=== PATIENT | male | born 1960 | race Caucasian/White ===

== ENCOUNTER → 2022-06-15 | Outpatient (CLI) | payer OTHER, SELFPAY ==
[2022-06-15 10:05] LABS: PSA,Total- Diagnostic 6.28 ng/mL (0.0-4.0)
== END | disposition home or self-care (01) ==
PROVIDERS: PCP Nurse Practitioner Family; Referring Provider Registered Nurse; Visit Provider Registered Nurse
DX: R97.20 Elevated prostate specific antigen [PSA] (principal)
CPT/HCPCS: 36415; 84153

== ENCOUNTER → 2022-07-06 | Outpatient (CLI) | payer OTHER, SELFPAY ==
--- NOTE | 2022-07-06 | IMM_PTH ---
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 Khadar Palomo MD : 1960 BED: DIS: 07/06/2022 SPEC #: [id number] RECD: 07/10/22 13:27 STATUS: AUGUSTO REQ #: [id number] NHAN: 07/06/22 00:[address]: Khadar Palomo DEPT: IMMUNOHISTOCHEMISTRY RECD BY: Karine Funes ENTERED: 07/10/22 13:28 SP TYPE: IMMUNO OTHR DR: Jo-Ann Benoit, ABDIRASHID-C Tissues: A - PROSTATE RIGHT B - PROSTATE RIGHT C - PROSTATE RIGHT Procedures: 34BE12 (add) P40 (add) 34BE12 (initial) PHYSICIAN & INSTITUTION [place] [id number] SPECIMEN INFORMATION: Tissue Source: A - Right prostate, apex, B - Right prostate, mid, C - Right prostate, base Clinical Info: Elevated PSA Specimen Number: [id number] A-C CPT code: 93778, 59676 x5 METHODOLOGY: Deparaffinized sections of prefer/formalin-fixed tissue or PAP/DQ stained slides are incubated with monoclonal/polyclonal antibodies/oligonucleotide probes. Localization is made via biotin free immunoperoxidase method. Appropriate controls are performed and reacted as expected. Results on target cell population are indicated in the following table: RESULTS: ANTIBODY / CLONE RESULT Block A P40 (BC28) positive 34BE12 (34BE12) positive Block B P40 (BC28) positive 34BE12 (34BE12) positive Block C P40 (BC28) negative 34BE12 (34BE12) negative These tests were developed and their performance characteristics determined by [facility]. They may not have been cleared or approved by the U.S. Food and Drug Administration. The FDA has determined that such clearance or approval is not necessary. The above immunohistochemical/dualISH markers are ordered and reviewed by the Pathologist. INTERPRETATION: A. Right prostate, apex, core biopsy: Negative for malignancy. B. Right prostate, mid, core biopsy: Negative for malignancy. C. Right prostate, base, core biopsy: Adenocarcinoma. SJ:charla 07/12/2022
--- NOTE | 2022-07-06 08:00 | PROSBIL_PTH ---
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 Khadar Palomo MD : 1960 BED: DIS: 07/06/2022 SPEC #: [id number] RECD: 07/06/22 15:44 STATUS: AUGUSTO REQ #: [id number] NHAN: 07/06/22 08:[address]: Khadar Palomo DEPT: SURGICAL PATHOLOGY RECD BY: Thao Ramsay ENTERED: 07/07/22 13:15 SP TYPE: PROST BX DARIEN DR: Jo-Ann Benoit, JUAN Tissues: A - PROSTATE RIGHT B - PROSTATE RIGHT C - PROSTATE RIGHT D - PROSTATE LEFT E - PROSTATE LEFT F - PROSTATE LEFT Procedures: PROSTATE BX HEADER OPERATION: Prostate biopsy PRE-OP DIAGNOSIS: Elevated PSA TISSUE SUBMITTED: A - Right apex, B - Right mid, C - Right base, D - Left apex, E - Left mid, F - Left base MICROSCOPIC DIAGNOSIS A. Right prostate, apex, core biopsy: Prostatic tissue, negative for malignancy. Focal chronic inflammation. See comment. B. Right prostate, mid, core biopsy: Prostatic tissue, negative for malignancy. See comment. C. Right prostate, base, core biopsy: Prostatic adenocarcinoma. Joseph grade: 3+3=6 Number of cores involved: 1/2 Proportion of tissue involved: <5% Perineural invasion: Not identified. Greatest tumor length: <0.1 cm See comment. D. Left prostate, apex, core biopsy: Prostatic adenocarcinoma. Joseph grade: 3+3=6 Number of cores involved: 2/2 Proportion of tissue involved: ~15% Perineural invasion: Not identified. Greatest tumor length: 0.3 cm Focal atrophy and chronic inflammation. E. Left prostate, mid, core biopsy: Prostatic tissue, negative for malignancy. Focal atrophy and chronic inflammation. F. Left prostate, base, core biopsy: Prostatic tissue, negative for malignancy. SJ:charla 07/10/2022 COMMENT A-C. Immunohistochemistry ([id number]) supports the above diagnosis. Case has been reviewed in consultation with Dr. Petty who concurs with the above diagnosis. IDC:AM MICROSCOPIC DESCRIPTION Slides are reviewed. GROSS DESCRIPTION A - Received is one container designated prostate, right apex. The specimen consists of two elongated fragments of light emery-white soft tissue each measuring 1 cm in length and 0.1 cm in diameter. The specimen is totally submitted in one cassette. B - Received is one container designated prostate, right mid. The specimen consists of two elongated fragments of light emery-white soft tissue each measuring 1.5 cm in length and 0.1 cm in diameter. The specimen is totally submitted in one cassette. C - Received is one container designated prostate, right base. The specimen consists of two elongated fragments of light emery-white soft tissue each measuring 1 cm in length and 0.1 cm in diameter. The specimen is totally submitted in one cassette. D - Received is one container designated prostate, left apex. The specimen consists of two elongated fragments of light emery-white soft tissue each measuring 1.5 cm in length and 0.1 cm in diameter. The specimen is totally submitted in one cassette. E - Received is one container designated prostate, left mid. The specimen consists of two elongated fragments of light emery-white soft tissue each measuring 1 cm in length and 0.1 cm in diameter. The specimen is totally submitted in one cassette. F - Received is one container designated prostate, left base. The specimen consists of two elongated fragments of light emery-white soft tissue each measuring 1 cm in length and 0.1 cm in diameter. The specimen is totally submitted in one cassette. / AM:charla 07/07/2022 TC:0 [facility]: [id number] x6 ADDENDUM ADDENDUM ADDENDUM ADDENDUM ADDENDUM ADDENDUM ADDENDUM ADDENDUM ADDENDUM ADDENDUM ADDENDUM ADDENDUM ADDENDUM ADDENDUM ADDENDUM ADDENDUM ADDENDUM ADDENDUM ADDENDUM ADDENDUM ADDENDUM 11/08/2022 09:48 ADDENDUM 11/08/2022 09:48 ADDENDUM 11/08/2022 09:48 ADDENDUM 11/08/2022 09:48 ADDENDUM 11/08/2022 09:48 This addendum is added to incorporate an outside pathology consultation report. The case was examined at [facility] (#[id number]) and the following diagnosis was rendered. A. Right prostate, apex, core biopsy: Benign prostatic tissue. B. Right prostate, mid, core biopsy: Benign prostatic tissue. C. Right prostate, base, core biopsy: Atypical glands (atypical small acinar proliferation). D. Left prostate, apex, core biopsy: Prostatic adenocarcinoma, Zachery score 3+3=6 (Grade Group 1), involving 2/2 cores (2 mm tumor length, 15%, <1 mm tumor length <5%). E. Left prostate, mid, core biopsy: Benign prostatic tissue. F. Left prostate, base, core biopsy: Benign prostatic tissue. Please see complete above mentioned consultation report in EMR
== END | disposition home or self-care (01) ==
LOC: LABSPEC 15:50
PROVIDERS: PCP Nurse Practitioner Family; Visit Provider Urology
DX: C61 Malignant neoplasm of prostate (principal)
CPT/HCPCS: 88305; 88341; 88342; G0416

== ENCOUNTER → 2022-08-11 | Outpatient (CLI) | payer OTHER, SELFPAY ==
--- NOTE | 2022-08-11 10:45 | MRI_ITS ---
EXAM: MR LEFT UPPER EXTREMITY WITHOUT INTRAVENOUS CONTRAST CLINICAL INDICATION: LEFT thumb pain TECHNIQUE: Multiplanar and multisequence MR images of the left upper extremity without intravenous contrast. This report was created using [employer] report generation technology. COMPARISON: None. FINDINGS: BONES/JOINTS: At least moderate if not worse hypertrophic degenerative changes of the first carpometacarpal joint with subchondral cystic changes, incompletely imaged on this study. Moderate degenerative changes of the first metacarpophalangeal joint and first interphalangeal joint. No unusual marrow signal alterations including absence of acute or healing fracture. Medial medial and lateral collateral ligament/capsule at the first metacarpophalangeal joint are intact. No significant joint effusion. MUSCLES: Mild edema involving the deep thenar muscle fibers could be related to a strain injury. OTHER SOFT TISSUES: Flexor and extensor tendons of the first digit are intact. LUNG APICES: No significant joint effusion at the first digit joints. MRI/Upper Ext/No Jt/ wo IMPRESSION: 1. Mild edema involving the deep thenar muscle fibers could be related to a strain injury. 2. At least moderate if not worse hypertrophic degenerative changes of the first carpometacarpal joint with subchondral cystic changes, incompletely imaged on this study. 3. Otherwise no other significant internal derangement of the first digit. Electronically Signed: Ismael Marks MD at 21:43 EST ,
== END | disposition home or self-care (01) ==
PROVIDERS: PCP Nurse Practitioner Family; Referring Provider Orthopaedic Surgery; Visit Provider Orthopaedic Surgery
DX: M18.11 Unilateral primary osteoarthritis of first carpometacarpal joint, right hand (principal); M79.641 Pain in right hand
CPT/HCPCS: 73218

== ENCOUNTER → 2022-09-25 | Outpatient (CLI) | payer OTHER, BC, SELFPAY ==
--- NOTE | 2022-09-25 16:29 | MRI_ITS ---
ACR Level 3 findings have been noted. An addendum which confirms receipt of the report will follow. STUDY: MR PELVIS WITH T WITHOUT CONTRAST REASON FOR EXAM: Male, 62 years old. MALIGNANT NEOPLASM PROSTATE. Elevated PSA. Status post prostate biopsy July 06, 2022 with [place] 6 left apex and right base lesions. TECHNIQUE: Standardized fat and water weighted pulse sequences were obtained with prostate protocol including small [id number]-ed-[id number] T2 3 orthogonal planes, diffusion with ADC, axial sagittal postcontrast imaging. IV clariscan 24ml was administered for the contrast portion of the examination. Wide field of view axial T2 T1 and postcontrast T1 fat-saturated images were obtained through the mid and inferior pelvis. Sagittal T1 postgadolinium imaging obtained throughout the pelvis. COMPARISON: CT abdomen and pelvis August 19, 2016. FINDINGS: Prostate 5.3 x 5.1 x 5.1 cm (72ml) Peripheral zone: Mild heterogeneity of T2 signal at the superior most right prostatic base without discrete low T2 lesion. No focal restricted diffusion along the ADC signal. No focal enhancing mass on postgadolinium imaging. No focal T1 hyperintense residual postbiopsy change. Transition zone: Diffuse heterogeneous enlargement of the central gland with small circumscribed T2 hypointense hyperintense nodules. No immediately suspicious enhancement or specific diffusion restriction. No capsular bulge. Unremarkable rectal prostatic angles. Unremarkable seminal vesicles. Homogeneous normal bladder wall. Distal colonic diverticulosis with minimal nonspecific adjacent stranding at the proximal sigmoid colon, reference sagittal T1 series 13 image 38 and axial T1 postgadolinium imaging 6. No adenopathy within the study [id number]. Normal bone marrow signal. MRI/Pelvis W/WO Contrast IMPRESSION: Distal colonic diverticulosis with mild adjacent inflammatory stranding at the proximal sigmoid colon which could represent mild uncomplicated diverticulitis in the appropriate setting. No specific MR findings to correspond with positive prostatic biopsies. No evidence of extraprostatic spread or pelvic adenopathy. Overall imaging appearance is compatible with PI-RADS 2 Central gland predominant prosthetic enlargement compatible with underlying benign prostatic hyperplasia. Electronically Signed: Fidel Brody MD at 8:53 EST ,
[2022-09-25 17:01] LABS: CREATININE FINGERSTICK < 0.9 mg/dL (0.70-1.30); EGFR FINGERSTICK > 60.0000 mL/min (>60)
== END | disposition home or self-care (01) ==
PROVIDERS: PCP Nurse Practitioner Family; Referring Provider Urology; Visit Provider Urology
DX: C61 Malignant neoplasm of prostate (principal)
CPT/HCPCS: 72197; A9575